=== PATIENT | male | born 1945 ===

== ENCOUNTER 2018-05-26 07:57 | Outpatient (CLI) | payer OTHER | END 2018-05-26 08:06 | disposition home or self-care (01) | LOC: SONOGRAMA 07:57 | DX: E04.2 Nontoxic multinodular goiter (principal) ==

== ENCOUNTER 2022-09-28 05:05 | Day surgery (SDC) | payer OTHER ==
[~2022-09-28] VITALS: Ht 170.2 cm; Wt 97.5 kg
[~2022-09-28 05:05] MED LIST: AVAPRO300 MG PO; ELIQUIS5 MG PO; METFORMIN HCL500 M3 PO; METOPROLOL SUC200 MG PO; NORVASC5 MG PO; PRAVASTATIN SOD40 MG PO; TAMS0.4C PO
== END 2022-09-28 12:05 | disposition home or self-care (01) ==
LOC: CIR.AMB 05:05
PROVIDERS: ATTEND Urology
DX: C67.9 Malignant neoplasm of bladder, unspecified (principal); Z20.822 Contact with and (suspected) exposure to COVID-19

== ENCOUNTER 2023-10-03 09:32 | Outpatient (CLI) | payer OTHER | END 2023-10-03 09:35 | disposition home or self-care (01) | LOC: SONOGRAMA 09:32 | PROVIDERS: ATTEND Pathology Anatomic Pathology & Clinical Pathology | DX: D34 Benign neoplasm of thyroid gland (principal); E07.89 Other specified disorders of thyroid; E04.2 Nontoxic multinodular goiter ==

== ENCOUNTER 2024-07-10 07:40 | Day surgery (SDC) | payer OTHER ==
[2024-07-07 09:29] VITALS: BP 180/79
[2024-07-07 09:31] LABS: HEMATOCRIT 44.1 % (39.0-48.0); HEMOGLOBIN 14.8 g/dL (13-16.00); MEAN CELL VOLUME 95.1 fL (80.0-100.00); MEAN CORPUSCULAR HGB CONC 33.7 g/dl (32.0-36.0); PLATELET COUNT 203 K/uL (150-450); RED BLOOD COUNT 4.64 M/uL (4.00-6.00); RED CELL DISTRIBUTION WIDTH 13.5 % (11.5-14.5)
[2024-07-07 09:33] LABS: PH,URINE 5.5 (5.0-8.0); URINE APPEARANCE Clear; URINE BILIRRUBIN Negative (NEGATIVE); URINE BLOOD Negative; URINE COLOR Yellow; URINE GLUCOSE Negative (NEGATIVE); URINE KETONE Negative (NEGATIVE); URINE LEUKOCYTE Negative; URINE NITRATE Negative; URINE PROTEIN Negative (NEGATIVE); URINE UROBILINOGEN 0.2 E.U./dl
[2024-07-07 09:36] LABS: URINE BACTERIA 8.5 uL (0.0-1933); URINE EPITHELIAL CELLS 4.2 uL (0.0-38.8); URINE RBC 4.8 uL (0.0-20.8); URINE WBC 2.9 uL (0.0-23.2)
[2024-07-07 10:07] LABS: INR 1.11; PARTIAL THROMBOPLASTIN TIME 37.3 SECONDS (22.0-34.0)
[2024-07-07 11:16] LABS: CALCIUM 8.7 mg/dL (8.5-10.1); CREATININE SERUM 0.92 mg/dL (0.70-1.30); GFR 79.99; POTASSIUM 4.19 mEq/L (3.5-5.1)
[~2024-07-10] VITALS: Ht 170.2 cm; Wt 98.9 kg
[2024-07-10] MEDS ORDERED: GENTAMICIN SULFATE 40 MG/ML VIAL ONE (11:13)
[2024-07-10] MEDS ORDERED: TAMSULOSIN HCL 0.4 MG CAP PO ONE ×2 (12:15→14:54)
[2024-07-10] MEDS ORDERED: PHENAZOPYRIDINE HCL 100 MG TABLET PO ONE ×2 (12:15→14:54)
== END 2024-07-10 15:20 | disposition home or self-care (01) ==
LOC: CIR.AMB 07:40
PROVIDERS: ATTEND Urology
DX: C67.9 Malignant neoplasm of bladder, unspecified (principal); I10 Essential (primary) hypertension; E11.9 Type 2 diabetes mellitus without complications; E78.5 Hyperlipidemia, unspecified